=== PATIENT | female | born 1955 | race Caucasian/White ===

== ENCOUNTER 2022-05-01 13:10 | Outpatient (CLI) | payer MEDICARE, BC | END 2022-05-01 13:11 | disposition home or self-care (01) | LOC: CSHRAD 13:10 | PROVIDERS: ATTEND Family Medicine | DX: R05.9 Cough, unspecified (principal) | CPT/HCPCS: 71046 ==

== ENCOUNTER 2022-08-15 10:14 | Outpatient (CLI) | payer MEDICARE, BC | END 2022-08-15 10:15 | disposition home or self-care (01) | LOC: CSHRAD 10:14 | PROVIDERS: ATTEND Family Medicine | DX: M25.561 Pain in right knee (principal) ==

== ENCOUNTER 2023-04-21 10:03 | Outpatient (CLI) | payer MEDICARE, BC | END 2023-04-21 10:04 | disposition home or self-care (01) | LOC: CSHCT 10:03 | PROVIDERS: ATTEND Urology | DX: R31.29 Other microscopic hematuria (principal); G89.29 Other chronic pain; M54.50 Low back pain, unspecified; E27.8 Other specified disorders of adrenal gland | CPT/HCPCS: 74178 ==

== ENCOUNTER 2024-01-20 08:35 | Outpatient (CLI) | payer MEDICARE, BC ==
[2024-01-20] MEDS ORDERED: Iopamidol 300 61% 100 ML VIAL FS ONE (08:59)
== END 2024-01-20 08:36 | disposition home or self-care (01) ==
LOC: CSHCT 08:35
PROVIDERS: ATTEND Urology
DX: E27.9 Disorder of adrenal gland, unspecified (principal); E27.8 Other specified disorders of adrenal gland
CPT/HCPCS: 36415; 74170; 82565 ×2; Q9967

== ENCOUNTER 2024-08-25 09:33 | Outpatient (CLI) | payer MEDICARE, BC | END 2024-08-25 09:34 | disposition home or self-care (01) | LOC: CSHMAMMO 09:33 | PROVIDERS: ATTEND Obstetrics & Gynecology | DX: N63.10 Unspecified lump in the right breast, unspecified quadrant (principal); Z78.0 Asymptomatic menopausal state | CPT/HCPCS: 76642; 77066; 77080; G0279 ==